=== PATIENT | female | born 1990 | race Caucasian/White ===

== ENCOUNTER 2018-10-31 19:23 | Emergency (ER) | payer OTHER ==
[2018-10-31 19:59] VITALS: BP 120/67
--- NOTE | 2018-10-31 20:24 | UC ---
Back Pain HPI - HPI Summary HPI Summary: Pt presents with c/o of worsening mid and low back pain. Pt denies injury recent or past. Denies urinary symptoms Pt does have a two year old and 8 month old and does carry both children. Pt states that the pain worsens with cough. She also has c/o of worsening psoriasis. - History of Current Complaint Chief Complaint: UCBackPain Stated Complaint: LOWER BACK/ABDOMEN PAIN Time Seen by Provider: 10/31/18 20:03 Hx Obtained From: Patient Hx Last Menstrual Period: couple of weeks ago ?: No Onset/Duration: Gradual Onset, Lasting Days, Still Present, Worse Since - onset Timing: Lasting Weeks Severity Initially: Mild Severity Currently: Severe Pain Intensity: 10 Back Pain: Is Diffuse Character: Dull, Aching, Spasmodic, Stiffness Aggravating Factor(s): Movement, Lifting, Bending Alleviating Factor(s): Nothing Associated Signs And Symptoms: Positive: Flank Pain - Risk Factors AAA Risk Factors: Negative TAD Risk Factors: Negative Cauda Equina Risk Factors: Negative Epidural Abscess Risk Factors: Negative - Allergies/Home Medications Allergies/Adverse Reactions: Allergies Allergy/AdvReac Type Severity Reaction Status Date / Time latex Allergy Hives Verified 10/31/18 20:00 naproxen Allergy Vomiting Verified 10/31/18 20:00 PMH/Surg Hx/FS Hx/Imm Hx Previously Healthy: Yes - Surgical History Surgical History: Yes Surgery Procedure, Year, and Place: ESOPHOGUS-DISMALIDEY SYNDROME- 2013 - Family History Known Family History: Positive: Cardiac Disease - Social History Occupation: Employed Full-time Lives: With Family - two children Alcohol Use: Occasionally Substance Use Type: Marijuana Substance Use Comment - Amount & Last Used: daily; 07/29/14 1830 Smoking Status (MU): Former Smoker Type: Cigarettes Amount Used/How Often: 1/4 PPD Have You Smoked in the Last Year: Yes When Did the Patient Quit Smoking/Using Tobacco: 2016 - Immunization History Vaccination Up to Date: Yes Review of Systems All Other Systems Reviewed And Are Negative: Yes Constitutional: Positive: Negative Skin: Positive: Rash - psoriasis Eyes: Positive: Negative ENT: Positive: Negative Respiratory: Positive: Negative Cardiovascular: Positive: Negative Gastrointestinal: Positive: Abdominal Pain Genitourinary: Positive: Negative Motor: Positive: Negative Neurovascular: Positive: Negative Musculoskeletal: Positive: Myalgia - mid and low back Neurological: Positive: Negative Psychological: Positive: Negative Is Patient Immunocompromised?: No Physical Exam Triage Information Reviewed: Yes Appearance: Other: - tearful Vital Signs: Initial Vital Signs Temp 98.3 F 10/31/18 19:49 Pulse 82 10/31/18 19:49 Resp 18 10/31/18 19:49 BP 120/67 10/31/18 19:49 Pulse Ox 98 10/31/18 19:49 Vital Signs Reviewed: Yes Eye Exam: Normal ENT Exam: Normal Dental Exam: Normal Neck exam: Normal Respiratory: Positive: No respiratory distress Musculoskeletal Exam: Normal Musculoskeletal: Positive: Strength Intact, ROM Intact Neurological Exam: Normal Psychological Exam: Normal Skin: Positive: Rashes - psoriasis plaques Back Pain Course/Dx - Differential Dx/Diagnosis Differential Diagnosis/HQI/PQRI: Strain Provider Diagnosis: Back pain, Psoriasis Discharge - Sign-Out/Discharge Documenting (check all that apply): Patient Departure All imaging exams completed and their final reports reviewed: No Studies - Discharge Plan Condition: Stable Disposition: HOME Prescriptions: Cyclobenzaprine TAB* [Flexeril 10 MG TAB*] 10 mg PO Q8H PRN #15 tab PRN Reason: Pain - Mild Patient Education Materials: Psoriasis (ED), Acute Low Back Pain (ED), Arthralgia (ED) Referrals: [facility] [place] [facility] [Outside] - If Needed Katelynn Moreno MD [Medical Doctor] - As Soon As Possible No Primary Care Phys,NOPCP [Primary Care Provider] - Rigoberto Angeles MD [Medical Doctor] - As Soon As Possible - Billing Disposition and Condition Condition: STABLE Disposition: Home
== END 2018-10-31 20:43 | disposition home or self-care (01) ==
LOC: UCCORT 19:23
DX: M54.5 Low back pain (principal); L40.9 Psoriasis, unspecified; Z87.891 Personal history of nicotine dependence
CPT/HCPCS: 81003; 99212; G0463

== ENCOUNTER 2019-06-15 09:30 | Emergency (ER) | payer OTHER ==
[2019-06-15 10:42] VITALS: BP 111/73
--- NOTE | 2019-06-15 10:42 | UC ---
Respiratory Complaint HPI - HPI Summary HPI Summary: Pt presents with c/o cough, burning chest and has positive hx of asthma and seasonal allergies. Pt states she just refilled her rescue inhaler and advair yesterday and restarted both as she has been without them for a few days. - History of Current Complaint Chief Complaint: UCGeneralIllness Stated Complaint: COUGH,CONGESTION Time Seen by Provider: 06/15/19 10:14 Hx Obtained From: Patient Hx Last Menstrual Period: depo ?: No Onset/Duration: Sudden Onset, Lasting Days, Still Present Timing: Intermittent Episodes Severity Initially: Mild Severity Currently: Mild Character: Cough: Nonproductive Aggravating Factors: Allergens, Exertion, Deep Breaths Alleviating Factors: Other - pt has not been using asthma medications until today. Associated Signs And Symptoms: Positive: Wheezing, URI Related History: Seasonal Allergies - Risk Factors Pulmonary Embolism Risk Factors: Negative Cardiac Risk Factors: Negative Pseudomonas Risk Factors: Chronic Lung Disease - asthma Tuberculosis Risk Factors: Negative - Allergies/Home Medications Allergies/Adverse Reactions: Allergies Allergy/AdvReac Type Severity Reaction Status Date / Time latex Allergy Hives Verified 06/15/19 10:04 naproxen Allergy Vomiting Verified 06/15/19 10:04 Home Medications: Home Medications Albuterol HFA INHALER* [Ventolin HFA Inhaler*] 1 - 2 puff INH Q4H PRN 01/03/13 [ History Confirmed 06/15/19] Ibuprofen TAB* [Motrin TAB* 600 MG] 600 mg PO Q6H PRN 09/30/14 [History Confirmed 06/15/19] Fexofenadine (NF) [Anni 180 (NF)] 180 mg PO DAILY #20 tab 06/15/19 [Rx] predniSONE 10 mg TAB [Deltasone 10 MG TAB*] 30 mg PO DAILY #12 tab 06/15/19 [Rx] PMH/Surg Hx/FS Hx/Imm Hx Previously Healthy: Yes Respiratory History: Asthma - Surgical History Surgical History: Yes Surgery Procedure, Year, and Place: ESOPHOGUS-DISMotility SYNDROME- 2013 - Family History Known Family History: Positive: Cardiac Disease - Social History Occupation: Employed Full-time Lives: With Family Alcohol Use: Occasionally Substance Use Type: Marijuana Substance Use Comment - Amount & Last Used: daily; 07/29/14 1830 Smoking Status (MU): Former Smoker Type: Cigarettes Amount Used/How Often: 1/4 PPD Have You Smoked in the Last Year: Yes When Did the Patient Quit Smoking/Using Tobacco: 2016 - Immunization History Vaccination Up to Date: Yes Review of Systems All Other Systems Reviewed And Are Negative: Yes Constitutional: Positive: Negative Skin: Positive: Negative Eyes: Positive: Negative ENT: Positive: Negative Respiratory: Positive: Cough, Other - wheezing Cardiovascular: Positive: Other - "burning chest" Gastrointestinal: Positive: Negative Genitourinary: Positive: Negative Motor: Positive: Negative Neurovascular: Positive: Negative Musculoskeletal: Positive: Negative Neurological/Mental Status: Positive: Negative Psychological: Positive: Negative Is Patient Immunocompromised?: No Physical Exam Triage Information Reviewed: Yes Appearance: Well-Appearing Vital Signs: Initial Vital Signs Temp 97.9 F 06/15/19 10:00 Pulse 79 06/15/19 10:00 BP 111/73 06/15/19 10:00 Pulse Ox 98 06/15/19 10:00 Vital Signs Reviewed: Yes Eye Exam: Normal ENT Exam: Normal ENT: Positive: Hearing grossly normal Dental Exam: Normal Neck exam: Normal Respiratory Exam: Normal Respiratory: Positive: Normal breath sounds, No respiratory distress Cardiovascular Exam: Normal Musculoskeletal Exam: Normal Neurological Exam: Normal Psychological Exam: Normal Skin Exam: Normal Respiratory Course/Dx - Differential Dx/Diagnosis Differential Diagnosis/HQI/PQRI: Bronchitis, Influenza Provider Diagnosis: Allergies, Cough in adult, Exacerbation of asthma Discharge ED - Sign-Out/Discharge Documenting (check all that apply): Patient Departure All imaging exams completed and their final reports reviewed: No Studies - Discharge Plan Condition: Stable Disposition: HOME Prescriptions: Fexofenadine (NF) [Anni 180 (NF)] 180 mg PO DAILY #20 tab predniSONE 10 mg TAB [Deltasone 10 MG TAB*] 30 mg PO DAILY #12 tab Patient Education Materials: Acute Cough (ED) Forms: COVID-19 Eval & Not Tested, *Work Release Referrals: No Primary Care Phys,NOPCP [Primary Care Provider] - Additional Instructions: We still advise that you stay home and self quarantine for 14 days beginning today 06.15.19. - Billing Disposition and Condition Condition: STABLE Disposition: Home
== END 2019-06-15 11:13 | disposition home or self-care (01) ==
LOC: UCCORT 09:30
DX: J45.901 Unspecified asthma with (acute) exacerbation (principal); R05 Cough; Z88.6 Allergy status to analgesic agent; Z91.040 Latex allergy status; Z87.891 Personal history of nicotine dependence
CPT/HCPCS: 99212; G0463

== ENCOUNTER 2019-06-24 10:56 | Emergency (ER) | payer OTHER ==
[2019-06-24 11:57] VITALS: BP 127/82
[2019-06-24 12:18] LABS: Influenza A Molecular Negative (Negative); Influenza B Molecular Negative (Negative)
--- NOTE | 2019-06-24 12:36 | UC ---
Respiratory Complaint HPI - HPI Summary HPI Summary: Patient is a 29yo female presenting with runny nose, cough, chest congestion, and sore throat x9 days. Patient states that she has also felt nauseous the last 2 days. Also states fever this morning of 100.5. Patient states she was seen here at symptom onset on 06/14 and was told to quarantine at home but did not receive testing for covid 19. States she was given prednisone and anni but symptoms have not improved. Today she also notes mid sternal discomfort. Denies sob and wheezing. Denies difficulty breathing. States she is using her inhaler with temporary relief of symptoms. Denies ill contacts.Denies possibility of . Patient states she did not self quarantine because she "cannot financially afford it." She works as a home health aide. States she would like testing for covid 19 today. PMHx asthma, anxiety, and depression. - History of Current Complaint Chief Complaint: UCRespiratory Stated Complaint: NAUSEA x2 DAYS Hx Obtained From: Patient Hx Last Menstrual Period: on DEPO Pain Intensity: 0 - Allergies/Home Medications Allergies/Adverse Reactions: Allergies Allergy/AdvReac Type Severity Reaction Status Date / Time latex Allergy Hives Verified 06/24/19 11:24 naproxen Allergy Vomiting Verified 06/24/19 11:24 Home Medications: Home Medications Fexofenadine (NF) [Anni 180 (NF)] 180 mg PO DAILY #20 tab 06/15/19 [Rx Confirmed 06/24/19] Bupropion XL* [Wellbutrin XL *] 150 mg PO DAILY 06/24/19 [History Confirmed ] Escitalopram * [Lexapro *] 20 mg PO DAILY 06/24/19 [History Confirmed 06/24/19] busPIRone TAB* [Buspar TAB *] 15 mg PO BID 06/24/19 [History Confirmed 06/24/19] medroxyPROGESTERone ACETATE* [DEPO-Provera] 1 syr IM ONCE 06/24/19 [History Confirmed 06/24/19] PMH/Surg Hx/FS Hx/Imm Hx Respiratory History: Asthma Psychological History: Anxiety, Depression - Surgical History Surgical History: Yes Surgery Procedure, Year, and Place: ESOPHOGUS-DISMotility SYNDROME- 2013 - Family History Known Family History: Positive: Cardiac Disease - Social History Alcohol Use: Occasionally Substance Use Type: None Substance Use Comment - Amount & Last Used: daily; 07/29/14 1830 Smoking Status (MU): Former Smoker Type: Cigarettes Amount Used/How Often: 1/4 PPD Have You Smoked in the Last Year: Yes When Did the Patient Quit Smoking/Using Tobacco: 2015 - Immunization History Vaccination Up to Date: Yes Review of Systems All Other Systems Reviewed And Are Negative: Yes Constitutional: Positive: Fever. Negative: Chills, Fatigue ENT: Positive: Sore Throat, Nasal Discharge Respiratory: Positive: Cough. Negative: Shortness Of Breath Cardiovascular: Positive: Negative Gastrointestinal: Positive: Nausea Musculoskeletal: Positive: Negative Neurological/Mental Status: Positive: Negative Physical Exam - Summary Physical Exam Summary: Vital Signs Reviewed: Yes A+Ox3, no distress, well-appearing Eyes: Conjunctiva Clear ENT: Hearing grossly normal, TM x 2 clear, moist, uvula midline, no exudate, no erythema Neck: Positive: Supple, no LAD Respiratory: Positive: No respiratory distress, No accessory muscle use + CTA throughout no w/r Cardiovascular: RRR nl s1, s2 no m/r Musculoskeletal Exam: GRADY x 4 without difficulty Neurological: Positive: Alert Psychological: Positive: age appropriate behavior Skin: Positive: no rash, no ecchymosis Vital Signs: Initial Vital Signs Temp 97.4 F 06/24/19 11:56 Pulse 85 06/24/19 11:56 Resp 18 06/24/19 11:56 BP 127/82 06/24/19 11:56 Pulse Ox 98 06/24/19 11:56 Lab Results 06/24/19 06/24/19 Range/Units 12:04 12:06 Influenza A (Rapid) Negative (Negative) Influenza B (Rapid) Negative (Negative) Group A Strep Rapid Negative (Negative) Respiratory Course/Dx - Course Course Of Treatment: Flu and strep tests were negative. I discussed these results with the patient and informed her that she would receive the covid19 results within the next 3-5 days. I discussed self quarantining and the importance of isolation until advised otherwise by healthcare provider. I instructed the patient to continue with inhaler, allergy medication, and tylenol. Instructed to go to the ED if she experiences worsening shortness of breath/difficulty breathing. Patient voiced understanding and agreed with treatment plan. All questions answered to the best of my abilities. Full PPE was worn during this encounter - Differential Dx/Diagnosis Provider Diagnosis: Acute bronchitis Discharge ED - Sign-Out/Discharge Documenting (check all that apply): Patient Departure All imaging exams completed and their final reports reviewed: No Studies - Discharge Plan Condition: Stable Disposition: HOME Patient Education Materials: Viral Syndrome (ED) Forms: COVID-19 Tested & Isolation Referrals: No Primary Care Phys,NOPCP [Primary Care Provider] - Additional Instructions: As discussed, you tested negative for strep and flu today. You also received testing for covid 19 today. You will be notified of the results within the next 3-5 days. You need to self-quarantine for the next 14 days unless otherwise advised by a healthcare provider. This means staying home and no contact with anyone who lives with you. You should not share your bedroom or bathroom. Food should be left outside your door for you to take once the other person has walked away. You may continue with tylenol and your inhaler. Increase your fluid intake. Go to the nearest emergency room or call 911 if you experience new or worsening symptoms. - Billing Disposition and Condition Condition: STABLE Disposition: Home - Attestation Statements Provider Attestation: I was available for consult. This patient was seen by the [facility]. The patient was not presented to, seen by, or examined by me. -Jelani
== END 2019-06-24 12:40 | disposition home or self-care (01) ==
LOC: UCCORT 10:56
DX: J20.9 Acute bronchitis, unspecified (principal); R11.0 Nausea; J02.9 Acute pharyngitis, unspecified; Z20.828 Contact with and (suspected) exposure to other viral communicable diseases; F41.9 Anxiety disorder, unspecified; F32.9 Major depressive disorder, single episode, unspecified; Z79.899 Other long term (current) drug therapy; Z88.6 Allergy status to analgesic agent; Z91.040 Latex allergy status; Z87.891 Personal history of nicotine dependence
CPT/HCPCS: 87635; 87651; 99211; G0463